=== PATIENT | male | born 2000 | race Caucasian/White ===

== ENCOUNTER 2024-08-01 02:15 | Emergency (ER) | payer OTHER, SELFPAY ==
--- NOTE | 2024-08-01 03:42 | ED.GENADULT ---
HPI - General Adult General Chief complaint: Dental/Oral Stated complaint: dental pain Time Seen by Provider: 08/01/24 03:06 History of Present Illness HPI narrative: patient is a 24-year-old gentleman presents emergency department with chief complaint of dental pain. The patient reports that he has a upper molar that is causing pain the patient reports he saw dentist today and a prescription for Augmentin but was unable to get it filled because the pharmacy hours. Patient states this evening he woke up and his pain was significantly worsened patient cited come to the emergency department patient denies shortness of breath denies trismus Review of Systems Review of Systems: A 10 system review of systems was completed on the patient and is negative except for what is stated in the HPI. Nursing and ancillary documentation was reviewed. Exam Narrative: GENERAL: Well-appearing, well-nourished, and in no acute distress. HEAD: Normocephalic, atraumatic. EYES: PERRLA and EOMI. ENT: Nares clear, no rhinorrhea or epistaxis. Mucous membranes moist. gross decay of the upper molar on the left side at tooth 15. NECK: Supple. CHEST: Clear to auscultation. No respiratory distress. HEART: Regular rate and rhythm. No murmur heard. Normal peripheral pulses. ABDOMEN: Soft, nontender, nondistended, normal active bowel sounds. EXTREMITIES: Normal range of motion. No edema. SKIN: Warm, dry, no rash. NEURO: No focal deficits. Alert and oriented x3. PSYCH: Normal mood and affect. Medical Decision Making MDM Narrative Medical decision making narrative: Patient is not showing signs of Moris angina is afebrile vitals are stable patient was given a dose of [place] in the emergency department was also given a dose of antibiotic. Patient should get his prescription filled in the morning in the patient should follow-up with his dentist as soon as possible. Discharge Plan Discharge Clinical Impression: Toothache Patient Disposition: Home, Self-Care Condition: Stable Instructions: Antibiotic Form, Toothache (ED) Follow-up/Referrals: PHYSICIAN NOT ON STAFF,NONSTAFF [Primary Care Provider] - Time of Disposition: 03:45
[2024-08-01] MEDS: AMOXICILLIN/CLAVULANATE K 875-125 MG TAB 1 TABLET PO (03:53)
[2024-08-01] MEDS: HYDROcodone/acetaminophen (*CRX) 5-325 MG TABLET 1 TAB PO (03:53)
[2024-08-01 04:29] VITALS: BP 110/62; PULSE 78; RESP 18; TEMP 36.7; O2SAT 98
== END 2024-08-01 04:30 | disposition home or self-care (01) ==
PROVIDERS: Emergency Provider Emergency Medicine
DX: K08.89 Other specified disorders of teeth and supporting structures (principal)
CPT/HCPCS: 99283; A9270

== ENCOUNTER 2025-06-06 21:25 | Emergency (ER) | payer OTHER, SELFPAY ==
--- NOTE | ~2025-06-06 | XR_ITS ---
Examination: XR chest 2V Clinical History: chest pain Comparison: None Technique: PA and Lateral Findings: Cardiomediastinal silhouette normal size and configuration. Lungs clear. No acute bony abnormality. IMPRESSION: 1. No acute cardiopulmonary findings. Reviewed, dictated and finalized at location R.
[2025-06-06 21:28] VITALS: BP 150/89; PULSE 91; RESP 16; TEMP 36.5; O2SAT 100
--- NOTE | 2025-06-06 21:35 | ECG_ITS ---
Test Date: 2025-06-06 21:38:16 Measurements Intervals [place] Rate: 87 P: 46 MO: 138 QRS: 38 QRSD: 82 T: 21 QT: 330 QTc: 397 Interpretive Statements SINUS RHYTHM NORMAL ECG No previous ECG available for comparison Electronically Signed On 06-07-2025 07:41:57 CDT by Barry Rodriguez D.O.
[2025-06-06 21:48] LABS: Hematocrit 43.5 % (42.0-52.0); Hemoglobin 15.9 g/dL (14.0-18.0); Immature Granulocyte Percent A 1.3 % (0-0.5); Lymphocytes Absolute Auto 3.32 K/mm3 (0.9-3.2); Mean Corpuscular HGB Conc 36.6 g/dl (32-36); Mean Corpuscular Hemoglobin 30.5 pg (26-34); Mean Corpuscular Volume 83.5 fl (80-100); Nucleated Red Blood Cells Absolute Auto 0.000 K/mm3 (0.0-0.012); Nucleated Red Blood Cells Perc 0.0 % (0.0-0.2); Platelet Count Result 225 k/mm3 (150-375); Red Blood Count 5.21 M/mm3 (4.6-6.20); White Blood Count 7.8 K/mm3 (4.5-10.0)
[2025-06-06] MEDS: ASPIRIN 81 MG CHEWABLE TABLET 324 MG PO (21:48)
--- NOTE | 2025-06-06 22:05 | ED_ITS ---
HPI - Chest Pain General Chief Complaint: Chest Pain Stated Complaint: CHEST PAIN Time Seen by Provider: 06/06/25 21:47 Source: patient and family Mode of arrival: ambulatory Limitations: no limitations History of Present Illness HPI narrative: Patient is a 25-year-old male presents to the emergency department accompanied by his complaining of chest pain. Patient describes it as a pressure for than a pain, started around 3:00 p.m., left lower lateral chest and slightly into the back on that region, comes and goes, has not noticed any burning on make it go away, denies any history of this discomfort, denies any associated shortness of breath. Patient notes that he was apple picking prior to the onset of this and did lift somebody up to pick some apples. Patient denies any history of blood clots. Patient denies any history of heart disease. Patient denies being a smoker. Patient denies history of high blood pressure, cholesterol medications, diabetes. Patient is to family history of heart disease in which his father had a heart attack in his late 40s or early 50s. Patient denies unilateral extremity swelling. Patient denies nausea, vomiting, diarrhea, abdominal pain, focal weakness, numbness, cough, fever. Patient admits to a recent strep throat in which he is currently on azithromycin. Related Data Allergies Allergy/AdvReac Type Severity Reaction Status Date / Time No Known Allergies Allergy Verified 06/06/25 21:32 Review of Systems 2 Review of Systems: A 10 system review of systems was completed on the patient and is negative except for what is stated in the HPI. Nursing and ancillary documentation was reviewed. Exam 2 Narrative: CONST: No acute distress. Well nourished. HENMT: Head is normocephalic and atraumatic. Moist mucous membranes. No posterior oropharynx erythema. EYES: No scleral icterus. No conjunctival injection or pallor. PERRL. NECK: No meningeal signs. RESP: Able to speak in full sentences. Normal respiratory effort. CTAB. CARDIO: Regular rate. Regular rhythm. 2+ DP and radial pulses bilaterally. GI: Nondistended. No tenderness to palpation. Soft. : No CVA tenderness to palpation. SKIN: No rashes or lesions noted on exposed skin. NEURO: Oriented x3. Moves all extremities. EXTREM/MSK/BACK: No pedal edema. PSYCH: Normal affect. Course Vital Signs Vital signs: Vital Signs Temperature 97.7 F 06/06/25 21:28 Pulse Rate 91 06/06/25 21:28 Respiratory Rate 16 06/06/25 21:28 Blood Pressure 150/89 H 06/06/25 21:28 Pulse Oximetry 100 06/06/25 21:28 Temperature 97.7 F 06/06/25 21:28 Pulse Rate 91 06/06/25 21:28 Respiratory Rate 16 06/06/25 21:28 Blood Pressure 150/89 H 06/06/25 21:28 Pulse Oximetry 100 06/06/25 21:28 MDM - Chest Pain MDM Narrative Medical decision making narrative: Patient presents with the above complaint. Initial vitals are remarkable for no significant abnormalities. Physical examination as noted above. Differential diagnosis includes was not limited to: ACS, costochondritis, pleurisy, pneumonia, GERD, pericarditis, myocarditis, pancreatitis. Plan discussed: Laboratory analysis, EKG, chest x-ray, aspirin, continues cardiac monitoring, continuous pulse oximetry. I have a very low suspicion for pulmonary embolism, PERC criteria applied and patient is less than 50 years 0, heart rate is less than 100, saturating greater than 95% on room air, no unilateral lower extremity swelling, no history of DVT, no trauma or surgery in the past 4 weeks, no hemoptysis. EKG performed at 9:38 p.m. reveals a rate of 87, rhythm is sinus rhythm, axis is normal, no ST elevations or depressions, no T-wave abnormalities, AL interval of 138 milliseconds, QRS duration of 82 milliseconds, no old EKG on file for comparison. CBC is without any significant abnormalities. Coags are within normal limits. Comprehensive metabolic panel reveals an ALT of 106, no old to compare to. Magnesium is 1.7. Troponin is less than 0.012. BNP is less than 20. Lipase 79. Repeat troponin is less than 0.012. Patient was reassessed at the bedside. No changes in physical exam. Patient is in no acute distress. Patient informed of the elevated ALT, notes that he has a history of liver enzyme elevation, instructed to continue to monitor this with his primary care physician. Denies any discomfort at this time. The patient has remained stable throughout the entire ED visit. Counseled patient regarding diagnostic results and potential diagnosis. Anticipatory guidance provided. Patient instructed to follow up with PCP and cardiology in the next 2-3 days. Patient counseled on: false reassurance from an emergency department evaluation; no current evidence of a medical emergency; return immediately for any new, recurrent, worsening, concerning, or refractory symptoms. Patient prescribed ibuprofen, flexeril. Prescription sent to preferred pharmacy. Medications discussed with patient. Additional verbal and printed discharge instructions were given and discussed with the patient. Patient verbally acknowledges understanding of condition and discharge instructions. All questions were answered to the patient's satisfaction. Patient is in agreement with the plan of care. The patient is stable for discharge and was discharged without incident. Lab Data 06/06/25 21:44 06/06/25 21:44 Labs: Lab Results 06/06/25 06/07/25 Range/Units 21:44 00:29 WBC 7.8 (4.5-10.0) K/mm3 RBC 5.21 (4.6-6.20) M/mm3 Hgb 15.9 (14.0-18.0) g/dL Hct 43.5 (42.0-52.0) % MCV 83.5 (80-100) fl MCH 30.5 (26-34) pg MCHC 36.6 H (32-36) g/dl RDW 11.8 (11.5-14.5) % Plt Count 225 (150-375) k/mm3 MPV 9.5 (7.4-10.4) fl Immature Gran % (Auto) 1.3 H (0-0.5) % Neut % (Auto) 46.2 (45.5-73.1) % Lymph % (Auto) 42.4 (18.3-44.2) % [place] % (Auto) 8.2 (2.6-8.5) % Eos % (Auto) 1.1 (0-4.4) % Baso % (Auto) 0.8 (0.2-1.2) % Lymph # (Auto) 3.32 H (0.9-3.2) K/mm3 [place] # (Auto) 0.6 (0.1-0.6) K/mm3 Eos # (Auto) 0.1 (0-0.3) K/mm3 Baso # (Auto) 0.1 (0.0-0.1) K/mm3 Abs Immat Gran (auto) 0.10 H (0.00-0.031) K/mm3 Absolute Neuts (auto) 3.6 (1.3-6.7) K/mm3 Absolute Nucleated RBC 0.000 (0.0-0.012) K/mm3 Nucleated RBC % 0.0 (0.0-0.2) % PT 12.6 (11.1-14.7) Seconds INR 0.9 APTT 30.4 (22.3-36.8) Seconds Sodium 140 (137-145) mmol/L Potassium 3.8 (3.4-5.0) mmol/L Chloride 105 (98-107) mmol/L Carbon Dioxide 27 (22-30) mmol/L Anion Gap 8 (4-12) mmol/L BUN 13 (9-20) mg/dL Creatinine 0.90 (0.7-1.3) mg/dL Estim Creat Clear Calc 119 ml/min Estimated GFR > 60 (59 - ) Glucose 104 (65-110) mg/dL Calcium 8.9 (8.4-10.2) mg/dL Magnesium 1.7 (1.6-2.3) mg/dL Total Bilirubin 0.7 (0.2-1.3) mg/dL AST 58 (17-59) U/L ALT 106 H (6-50) U/L Alkaline Phosphatase 57 (38-126) U/L Troponin I < 0.012 < 0.012 (0.000-0.034) ng/mL NT-Pro-B Natriuret Pep < 20 (19.9-100) pg/mL Total Protein 7.9 (6.3-8.2) g/dL Albumin 4.6 (3.5-5.1) g/dL Lipase 79 (23-300) U/L Discharge Plan Discharge Clinical Impression: Elevated alanine aminotransferase (ALT) level Chest pain Qualifiers: Chest pain type: unspecified Qualified Code(s): R07.9 - Chest pain, unspecified Patient Disposition: Home Condition: Stable Instructions: Antibiotic Form, Chest Pain (ED) Additional Instructions: Follow-up with your primary care physician the next 2-3 days for reassessment and follow-up with cardiology in the next 2-3 days and she will likely benefit from further outpatient workup such as stress testing. Refrain from any significant exertional activity in the meantime until seen by her doctors. Take Motrin and flexeril as needed for any discomfort. Return immediately to the emergency department for any new or concerning symptoms especially difficulty breathing, fever, redness, coughing blood, abdominal pain, focal weakness, numbness, new persistent or recurrent worsening or concerning chest pain or any emergent concerns for life, limb eyesight. As we discussed when your liver enzymes slightly elevated and he should continue to monitor this with your primary care physician time. Patient Language: German Prescriptions: New ibuprofen 400 mg tablet 400 mg PO Q6H PRN (Reason: pain) Qty: 30 0RF cyclobenzaprine 5 mg tablet 5 mg PO TID PRN (Reason: muscle spasm) Qty: 30 0RF Follow-up/Referrals: Barry Rodriguez DO [Physician, Cardiology] - 3 Days PHYSICIAN NOT ON STAFF,NONSTAFF [Non-Staff] Carlitos Boateng MD [Physician, Family Practice] - 3 Days Time of Disposition: 01:23 Quality HEART score for chest pain patients History: slightly suspicious ECG: normal Age: < or = to 45 years Risk factors: 1 or 2 risk factors Troponin: < or = to 1x normal limit Heart score: 1
[2025-06-06 22:11] LABS: Alanine Aminotransferase 106 U/L (6-50); Albumin Level 4.6 g/dL (3.5-5.1); Alkaline Phosphatase 57 U/L (38-126); Anion Gap 8 mmol/L (4-12); Aspartate Amino Transferase 58 U/L (17-59); Bilirubin,Total 0.7 mg/dL (0.2-1.3); Blood Urea Nitrogen 13 mg/dL (9-20); Calcium 8.9 mg/dL (8.4-10.2); Carbon Dioxide 27 mmol/L (22-30); Chloride 105 mmol/L (98-107); Estimated CRCL calculation 119 ml/min; Estimated Glomerular Filt Rate > 60; Glucose 104 mg/dL (65-110); Lipase 79 U/L (23-300); Potassium 3.8 mmol/L (3.4-5.0); Sodium 140 mmol/L (137-145); Total Protein 7.9 g/dL (6.3-8.2)
[2025-06-06 22:17] LABS: INR 0.9; Prothrombin Time 12.6 Seconds (11.1-14.7)
[2025-06-06 22:18] LABS: Partial Thromboplastin Time 30.4 Seconds (22.3-36.8)
[2025-06-06 22:22] LABS: Troponin I < 0.012 ng/mL (0.000-0.034)
[2025-06-06] MEDS: LACTATED RINGERS 1,000 ML 999 ML IV CONT (22:41)
[2025-06-06 23:15] LABS: Magnesium 1.7 mg/dL (1.6-2.3); NT Pro B Type Natriuretic Pept < 20 pg/mL (19.9-100)
--- NOTE | 2025-06-07 00:22 | ECG_ITS ---
Test Date: 2025-06-07 00:28:15 Measurements Intervals [place] Rate: 78 P: 53 MO: 155 QRS: 46 QRSD: 85 T: 17 QT: 345 QTc: 394 Interpretive Statements SINUS RHYTHM WITH SINUS ARRHYTHMIA BASELINE ARTIFACT- I, II, III, AVR, V1 NORMAL ECG Compared to ECG 06/06/2025 21:38:16 NO SIGNIFICANT CHANGE Electronically Signed On 06-07-2025 07:44:14 CDT by Barry Rodriguez D.O.
[2025-06-07 00:58] LABS: Troponin I < 0.012 ng/mL (0.000-0.034)
[2025-06-07 01:38] VITALS: BP 129/85; PULSE 82; RESP 19; O2SAT 97
--- NOTE | 2025-06-07 07:12 | ECG_ITS ---
Test Date: 2025-06-07 00:32:23 Measurements Intervals [place] Rate: 80 P: 48 CA: 156 QRS: 42 QRSD: 85 T: 30 QT: 343 QTc: 396 Interpretive Statements SINUS RHYTHM BASELINE ARTIFACT- V1 NORMAL ECG Compared to ECG 06/07/2025 00:28:15 NO SIGNIFICANT CHANGE Electronically Signed On 06-07-2025 07:44:35 CDT by Barry Rodriguez D.O.
== END 2025-06-07 01:40 | disposition home or self-care (01) ==
PROVIDERS: Emergency Provider Student in an Organized Health Care Education/Training Program; PCP Nurse Practitioner
DX: R07.89 Other chest pain (principal); R74.01 Elevation of levels of liver transaminase levels
CPT/HCPCS: 36415; 71046; 80053; 83690; 83735; 83880; 84484; 85025; 85610; 85730; 93005; 96360; 99284; A9270; J7120

== ENCOUNTER 2025-08-12 14:24 | Emergency (ER) | payer OTHER, SELFPAY ==
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
[2025-08-12 14:29] VITALS: BP 152/87; PULSE 85; RESP 16; TEMP 36.8; O2SAT 99
--- OUTSIDE RECORDS SUMMARY | 2025-08-12 17:11 | XMS_ITS | Clinical Summary ---
Author Organization [facility] Address [address] [place] [id number] Care Team Providers Care Offal Baler Name Role Phone Alecia Gomes NP Primary Care Provider [phone] Allergies No known active allergies Medications * This document contains information received from the source organization and may not represent a complete record from that organization. valACYclovir (VALTREX) 1 gram tabletIndication s:HSV-1 infection Take 2 tabs (2000 mg) 2 times a days for 1 day. 4 tablet 5 07/10/2025 Active Active Problems Patient Care Coordination No te Formatting of this note migh t be different from the original. 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 Adult wellness visit 06/26/2024 Assessment & Plan (07/10/2025 5:04 PM LOCKSTITCH ZIPPER SETTER): Orders: CBC with auto differential; Future Comprehensive metabolic panel; Future Lipid panel; Future Assessment & Plan (06/26/2024 8:33 AM CDT): Routine health maintenance objectives discussed and orders placed for any outstanding screening studies. Physical exam performed as above. Routine annual labs obtained and will be reviewed with patient when results available. Age-appropriate anticipatory guidance and counseling was provided and reviewed including: Encouraged regular physical activity--moderate activity for a total of 150 minutes per week over 3-5 days. Encouraged healthy diet with regular fresh fruits and vegetables limited in processed carbohydrates. Alcohol use Nicotine use Depression screening Family history of myocardial infarction in first degree male relative 06/26/2024 Overview (06/26/2024): Father (obese)- age 48, multiple stent placement Paternal male cousin- under age 40 Paternal aunt (drug use)- under age 60 Assessment & Plan (07/10/2025 5:04 PM LOCKSTITCH ZIPPER SETTER): Orders: Lipoprotein a (LPa); Future CT Coronary Calcium Scoring; Future Assessment & Plan (06/26/2024 8:36 AM CDT): Will screen lipid. Family history of diabetes mellitus (DM) 024 Overview (06/26/2024): Father has type 2 diabetes Assessment & Plan (07/10/2025 5:04 PM LOCKSTITCH ZIPPER SETTER): Orders: Lipid panel; Future Hemoglobin A1c; Future Assessment & Plan (06/26/2024 8:38 AM CDT): Will screen Deviated nasal septum, congenital 06/26/2024 Assessment & Plan (06/26/2024 8:52 AM CDT): Needs referral to ENT for surgical repair, would like to see [facility] at [facility]. Deviated to right. Referral placed. Does snore badly. Encounters Date Type Department Care Team Description 07/10/2025 4:30 PM LOCKSTITCH ZIPPER SETTER Office Visit [facility] Primary Care at [address] [id number] Alecia Gomes NP Obesity (BMI 35.0-39.9 without comorbidity) (Primary Dx); Adult wellness visit; Family history of myocardial infarction in first degree male relative; Family history of diabetes mellitus (DM); Elevated LDL cholesterol level; HSV-1 infection 06/09/2025 Documentation [facility] Medical [facility] Primary Care at [address] [phone] Alecia Gomes NP 06/08/2025 Immunization [facility] [address] [place] [address] 5[address] [place] [address] Sandy Roman RN 06/04/2025 6:15 PM CDT Office Visit [facility] at [address] [phone] Maggy Stroud PA Strep throat (Primary Dx) 05/27/2025 11:00 AM CDT Office Visit [facility] at [address] [id number] Maggy Stroud PA Strep throat (Primary Dx) from Last 3 Months Immunizations Immunization Administration Dates Next Due DTaP 11/14/1999 Hib (PRP-T) 11/14/1999 IPV 11/14/1999 Influenza, Quadrivalent, Spl it, Preservative Free, Intramuscular 06/04/2014 Influenza, Trivalent, Cell Culture-based MDCK, Preservative Free, Antibiotic Free, Intramuscular 06/08/2025 Influenza, Trivalent, Preser vative Free, Intramuscular 07/01/2024 Influenza, Unspecified 06/26/2023(Deferr ed: Patient decision),08/23/2020 MMR 11/14/1999 Meningococcal C Conjugate 07/15/2009 Meningococcal MCV4P (Menactra) 03/03/2016 Tdap 01/06/2023,07/15/2009 Varicella 07/15/2009,11/14/1999 Surgical History Surgery Date Site/Laterality Comments TONSILLECTOMY Family History Medical History Relation Name Comments Asthma Father Carlos Ponce Diabetes Father Carlos Ponce Hearing loss Father Carlos oPnce Heart disease Father Carlos Ponce Hypertension Father Carlos Ponce Cancer Maternal Grandmother Relation Name Status Comments Father Carlos Ponce Alive Maternal Grandmother Mother Alive Social History Tobacco Use Types Packs/Day Years Used Date Smoking Tobacco: Never Smokeless Tobacco: Never Tobacco Cessation:Counseling Given: Not Answered Alcohol Use Standard Drinks/Week Comments Yes 0 (1 standard drink = 0.6 oz pur e alcohol) PHQ-2 Answer Date Recorded PHQ-2 Total Score (If total score is 3 or more points, staff should administer the PHQ-9) 0 07/10/2025 AUDIT-C Answer Date Recorded Q1: How often do you have a drink containing alc ohol? Monthly or less 07/10/2025 Q2: How many drinks containi ng alcohol do you have on a typical day when you are drinking? 1 or 2 07/10/2025 Q3: How often do you have si x or more drinks on one occasion? Never 07/10/2025 Personal Safety Answer Date Recorded Have you ever been in or are you currently in a harmful physical or emotional relationship or is someone making you feel afraid or unsafe? Denies 01/26/2025 Sex and Gender Information Value Date Recorded Sex Assigned at Not on file Legal Sex Male 5:28 PM CDT Gender Identity Male 06/19/2024 4:35 PM CDT Sexual Orientation Straight 06/19/2024 4: 35 PM CDT Last Filed Vital Signs Vital Sign Reading Time Taken Comments Blood Pressure 110/70 07/10/2025 4:26 PM LOCKSTITCH ZIPPER SETTER Pulse 91 07/10/2025 4:26 PM LOCKSTITCH ZIPPER SETTER Temperature 36.4 C (97.6 F) 07/10/2025 4:26 PM LOCKSTITCH ZIPPER SETTER Respiratory Rate 16 07/10/2025 4:26 PM LOCKSTITCH ZIPPER SETTER Oxygen Saturation 97% 07/10/2025 4:26 PM LOCKSTITCH ZIPPER SETTER Inhaled Oxygen Concentration - - Weight 121.6 kg (268 lb) 07/10/2025 4:26 PM LOCKSTITCH ZIPPER SETTER Height 182.9 cm (6') 07/10/2025 4:26 PM LOCKSTITCH ZIPPER SETTER Body Mass Index 36.35 07/10/2025 4:26 PM LOCKSTITCH ZIPPER SETTER Plan of Treatment Health Maintenance Due Date Last Done Comments Covid-19 Vaccine () 07/10/2026 07/01/2024, 12/26/2020, 11/30/2020 Postponed from 04/27/2025 (Patient declined, but will receive in the future) Depression Screening 07/10/2026 07/10/2025, 06/26/20 Regular Well Visit/Exam 18-64 07/10/2026 07/10/2025, 06/26/2024 DTaP/Tdap/Td Vaccine (4 - Td or Tdap) 01/06/2033 01/06/2023, 07/15/2009, 11/14/1999 Varicella Vaccines Completed 07/15/2009, 11/14/1999 Hepatitis C Screening Completed 07/12/2024 Influenza Vaccine Completed 06/08/2025, , 08/23/2020, Additional history exists HPV Vaccines Discontinued Hepatitis B Screening Discontinued Pneumococcal vaccine <65 Aged Out No longer eligible based on patient's age to complete this topic Procedures Procedure Name Priority Date/Time Associated Diagnosis Comments POCT RAPID STREP Routine 06/04/2025 6:28 PM CDT Strep throat POCT RAPID STREP Routine 05/27/2025 10:5 5 AM CDT Strep throat POC INFLUENZA A/B, COVID-19 ANTIGEN Routine 05/27/2025 10:55 AM CDT Strep throat HEPATITIS C ANTIBODY Routine 07/12/2024 10:03 AM LOCKSTITCH ZIPPER SETTER from Last 3 Months or Most Recently Relevant to Health Maintenance Results * (ABNORMAL) POCT rapid strep A (06/04/2025 6:28 PM CDT) Rapid Strep A, POC Positive(A ) Negative Swab 06/04/2025 6:28 PM CDT Maggy LOCKETT POINT OF CARE TEST ORDER MIMI Final Result * POC Influenza A/B, COVID-19 antigen (05/27/2025 10:55 AM CDT) Influenza A Ag, POC Negative Negative [facility] Influenza B Ag, POC Negative Negative [facility] COVID-19 Ag POC Presumptive Negative Presumptive Negative, Invalid [facility] Nasal 05/27/2025 10:5 5 AM CDT Maggy LOCKETT POINT OF CARE TEST ORDER MIMI Final Result Performing Organization Address [facility] [address]/[facility] de Phone Number [facility] [address] * (ABNORMAL) POCT rapid strep A (05/27/2025 10:55 AM CDT) Rapid Strep A, POC Positive(A ) Negative Swab 05/27/2025 10:5 5 AM CDT Maggy LOCKETT POINT OF CARE TEST ORDER MIMI Final Result * Hepatitis C antibody (07/12/2024 10:03 AM LOCKSTITCH ZIPPER SETTER) Pathologist [facility] Hep C Ab NON-REACTI VE NON-REACT [facility] Comment: HCV antibody was non-reactive. There is no laboratory evidence of HCV infection. In most cases, no further action is required. However, if recent HCV exposure is suspected, a test for HCV RNA (test code 21361) is suggested. For additional information please refer to http://education.TAPQUAD/faq/SIX57s7 (This link is being provided for informational/ educational purposes only.) 07/12/2024 10:0 3 AM LOCKSTITCH ZIPPER SETTER 07/12/2024 10:03 AM LOCKSTITCH ZIPPER SETTER Narrative [facility] - 07/13/2024 8:35 AM LOCKSTITCH ZIPPER SETTER FASTING:YES FASTING: YES Alecia Gomes OLDER ADULT SOCIAL WORK SPECIALIST LAB MICROBIOLOGY - GENERAL ORDERABLES Final Result [facility] [id number] [address] [id number] from Last 3 Months or Most Recently Relevant to Health Maintenance Insurance [employer] Care Teams Offal Baler Relationship Specialty Start Date End Date Alecia Gomes NP [address] [address] PCP - General Internal Medicine 06/26/24
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
--- OUTSIDE RECORDS SUMMARY | 2025-08-12 19:00 | XMS_ITS | Clinical Summary ---
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 Adult wellness visit 06/26/2024 Assessment & Plan (07/10/2025 5:04 PM FITNESS SALES ASSOCIATE): Orders: CBC with auto differential; Future Comprehensive [...] 60 Assessment & Plan (07/10/2025 5:04 PM FITNESS SALES ASSOCIATE): Orders: Lipoprotein a (LPa); Future CT Coronary Calcium Scoring; Future Assessment & Plan (06/26/2024 8:36 AM CDT): Will screen lipid. Family history of diabetes mellitus (DM) 024 Overview (06/26/2024): Father has type 2 diabetes Assessment & Plan (07/10/2025 5:04 PM FITNESS SALES ASSOCIATE): Orders: Lipid panel; Future Hemoglobin A1c; Future Assessment & Plan (06/26/2024 8:38 AM CDT): Will screen Deviated nasal septum, congenital 06/26/2024 Assessment & Plan (06/26/2024 8:52 AM CDT): Needs referral to ENT for surgical repair, would like to see [facility] at [facility]. Deviated to right. Referral placed. Does snore badly. Encounters Date Type Department Care Team Description 07/10/2025 4:30 PM FITNESS SALES ASSOCIATE Office Visit [facility] at [address] [phone] Alecia Gomes NP Obesity (BMI 35.0-39.9 without comorbidity) (Primary Dx); Adult wellness visit; Family history of myocardial infarction in first degree male relative; Family history of diabetes mellitus (DM); Elevated LDL cholesterol level; HSV-1 infection 06/09/2025 Documentation [facility] Primary Care at [address] [phone] Alecia Gomes NP 06/08/2025 Immunization [facility] [address] [place] [address] 5th [address] [place] [address] Sandy Roman RN 06/04/2025 6:15 PM CDT Office Visit [facility] at [address] [phone] Maggy Stroud PA Strep throat (Primary Dx) 05/27/2025 11:00 AM CDT Office Visit [facility] at [address] [phone] Maggy Stroud PA Strep throat [...] Father Carlos Ponce Hearing loss Father Carlos Ponce Heart disease Father Carlos Ponce Hypertension Father [...] Comments Blood Pressure 110/70 07/10/2025 4:26 PM FITNESS SALES ASSOCIATE Pulse 91 07/10/2025 4:26 PM FITNESS SALES ASSOCIATE Temperature 36.4 C (97.6 F) 07/10/2025 4:26 PM FITNESS SALES ASSOCIATE Respiratory Rate 16 07/10/2025 4:26 PM FITNESS SALES ASSOCIATE Oxygen Saturation 97% 07/10/2025 4:26 PM FITNESS SALES ASSOCIATE Inhaled Oxygen Concentration - - Weight 121.6 kg (268 lb) 07/10/2025 4:26 PM FITNESS SALES ASSOCIATE Height 182.9 cm (6') 07/10/2025 4:26 PM FITNESS SALES ASSOCIATE Body Mass Index 36.35 07/10/2025 4:26 PM FITNESS SALES ASSOCIATE Plan of Treatment Health Maintenance Due Date [...] HEPATITIS C ANTIBODY Routine 07/12/2024 10:03 AM FITNESS SALES ASSOCIATE from Last 3 Months or Most Recently [...] EDW Influenza B Ag, POC Negative Negative [facility] COVID-19 Ag POC Presumptive Negative Presumptive Negative, Invalid [facility] Nasal 05/27/2025 10:5 5 AM CDT Maggy LOCKETT POINT OF CARE TEST ORDER MIMI Final Result Performing Organization Address [facility] de Phone Number [facility] [address] * (ABNORMAL) POCT rapid strep A (05/27/2025 10:55 AM CDT) Rapid Strep A, POC Positive(A ) Negative Swab 05/27/2025 10:5 5 AM CDT Maggy LOCKETT POINT OF CARE TEST ORDER MIMI Final Result * Hepatitis C antibody (07/12/2024 10:03 AM FITNESS SALES ASSOCIATE) Pathologist [facility] Hep C Ab NON-REACTI VE NON-REACT [facility] Comment: HCV antibody was non-reactive. There is no laboratory evidence of HCV infection. In most cases, no further action is required. However, if recent HCV exposure is suspected, a test for HCV RNA (test code 15166) is suggested. For additional information please refer to http://education.VeriTweet/faq/RYO67q1 (This link is being provided for informational/ educational purposes only.) 07/12/2024 10:0 3 AM FITNESS SALES ASSOCIATE 07/12/2024 10:03 AM FITNESS SALES ASSOCIATE Narrative [facility] - 07/13/2024 8:35 AM FITNESS SALES ASSOCIATE FASTING:YES FASTING: YES Alecia Gomes FOUNDRY PROCESS ENGINEER LAB MICROBIOLOGY - GENERAL ORDERABLES Final Result [facility] [address] [address] [phone] from Last 3 Months or Most Recently Relevant to Health Maintenance Insurance [employer] Care Teams Railroad Car Letterer Relationship Specialty Start Date End Date Alecia Gomes NP [address] [address] PCP - General Internal Medicine 06/26/24
--- NOTE | 2025-08-12 21:25 | PC.NURSE ---
pt called. No response
== END 2025-08-12 17:30 | disposition home or self-care (01) ==
LOC: ANHED 18:00
PROVIDERS: PCP Nurse Practitioner
DX: R51.9 Headache, unspecified (principal); V89.2XXA Person injured in unspecified motor-vehicle accident, traffic, initial encounter
CPT/HCPCS: 70450; 72125; 99284